=== PATIENT | female | born 1995 | race Two or more races ===

== ENCOUNTER 2021-03-27 18:00 | Emergency (ER) | payer OTHER ==
[~2021-03-27] VITALS: Ht 157.5 cm; Wt 52.2 kg
[2021-03-27] MEDS ORDERED: BCP (18:09)
[2021-03-28 09:10] LABS: HCV ANTIBODY <0.1 (0.0-0.9); HIV AB/P24 AG SCREEN Non Reactive (Non Reactive)
== END 2021-03-27 18:20 | disposition home or self-care (01) ==
LOC: ER 18:00
PROVIDERS: Physician Assistant
DX: Z77.21 Contact with and (suspected) exposure to potentially hazardous body fluids (principal)
CPT/HCPCS: 84460; 86317; 86703; 86803; 87340; 87389; 99282